=== PATIENT | female | born 1975 | race Asian ===

== ENCOUNTER 2016-11-21 07:05 | Day surgery (SDC) | payer OTHER ==
[~2016-11-21] VITALS: Ht 154.9 cm; Wt 67.1 kg
[~2016-11-21 07:05] MED LIST: PROT40T PO; RNT300T PO; Sodium Chloride LOK Flush 10 mL Syringe IV PRN; fentaNYL-PF 50 mCg/mL 2 mL Inj IVPUSH PRN
[2016-11-21 07:31] VITALS: BP 120/68; PULSE 66; RESP 14; O2SAT 98
[2016-11-21] MEDS ORDERED: GUAI120L57 PO (07:36)
[2016-11-21] MEDS ORDERED: fentaNYL-PF 50 mCg/mL 2 mL Inj IVPUSH PRN (07:45)
[2016-11-21] MEDS ORDERED: Sodium Chloride LOK Flush 10 mL Syringe IV PRN (07:45)
[2016-11-21] MEDS ORDERED: 0.9% Sodium Chloride 1,000 ML IV ONE (07:47)
[2016-11-21] MEDS ORDERED: 0.9% Sodium Chloride 1,000 ML ONE (07:50)
[2016-11-21 08:20] VITALS: BP 111/71; PULSE 64; RESP 16; O2SAT 97
[2016-11-21 08:28] VITALS: BP 110/69; PULSE 67; RESP 16; O2SAT 97
[2016-11-21 08:34] VITALS: BP 110/61; PULSE 56; RESP 16; O2SAT 97
--- NOTE | 2016-11-21 08:43 | ENDO ---
[address] [address] ENDOSCOPY PROCEDURE PATIENT: HELADIO COREY : 1975 MR#: [id number] ADMIT: 11/21/2016 JOB ID: [id number] DATE OF SERVICE: 11/21/2016 PREOPERATIVE DIAGNOSES: 1. History of Vallecillo esophagitis. 2. Dysphagia. POSTOPERATIVE DIAGNOSES: 1. History of Vallecillo esophagitis. 2. Dysphagia. PROCEDURE: Upper endoscopy with biopsy. SURGEON: Fernando Teran MD. INDICATIONS: The patient is a 41-year-old female, who has a history of Vallecillo esophagitis. Three years ago I performed a laparoscopic Mike fundoplication. She is currently complaining of dysphagia. She is also due for surveillance for her Vallecillo esophagitis. FINDINGS: The esophageal hiatus and the GE junction were at 38-39 cm from the incisors. There was no evidence of a hiatal hernia. There was no gross evidence of Vallecillo esophagitis. There was no stricture. There were no webs or bands, and the scope passed uneventfully into the stomach. Retrograde views of the cardia revealed a Hill grade I flap valve. The fundus, body and antrum of the stomach were endoscopically normal, as were the pylorus and duodenum into the second portion of the duodenum. Biopsies of the antrum and of the GE junction were obtained. DESCRIPTION OF PROCEDURE: The procedure and sedation plan was discussed with the patient and nursing staff. A procedural time-out was held. She gargled viscous Xylocaine. She received 4 mg of Versed and 100 mcg of fentanyl. The Olympus video endoscope was passed transorally into the second portion of the duodenum and withdrawn obtaining retroflexed views of the cardia and then biopsies with results as stated above. Esophageal manometry has also been ordered. IMPRESSION: 1. There was no explanation for dysphagia. 2. There were no obvious changes of Vallecillo esophagitis but pathology is pending. PLAN: She will obtain an esophageal manometry and return to see me in the office.
--- NOTE | 2016-11-22 15:26 | PATH ---
SURGICAL PATHOLOGY Attending Physician:Riana Conley CASE STATUS: Signed Out PATIENT NAME: HELADIO COREY PID: [id number] : 1975 DATE COLLECTED:11/21/2016 16:45 SPECIMEN: 1: Stomach, Antrum, Biopsy 2: Esophagus, Biopsy CLINICAL HISTORY: A: ANTRUM BIOPSY B: GE J BIOPSY FINAL DIAGNOSIS: 1.ANTRUM BIOPSY: GASTRIC BODY AND ANTRAL MUCOSA WITH NO DIAGNOSTIC ALTERATIONS. Negative for Helicobacter organisms. Negative for intestinal metaplasia. Negative for dysplasia and malignancy. 2.GEJ BIOPSY: SQUAMOCOLUMNAR MUCOSA WITH MILD INFLAMMATORY CHANGES CONSISTENT WITH REFLUX. Negative for intestinal metaplasia. Negative for dysplasia and malignancy. ICD10 code K21.0 GROSS DESCRIPTION: The specimen is received in two formalin filled containers labeled with the patient's name. 1). The specimen is sublabeled "antrum" and consists of a 0.3 x 0.3 x 0.2 CM portion of tissue which is entirely submitted in cassette 1A. 2). The specimen is sublabeled "GEJ" and consists of 3 portions of tissue which aggregate to 0.3 x 0.3 x 0.3 CM. The specimen is entirely submitted in cassette 2A. 11/21/2016 DAC MICRO DESCRIPTION: See diagnosis. ICD-9 CODES: CPT CODES: 1: 50458 2: 85109 Electronically Signed Out Jennie Moody MD [facility] [address], [place] [address] Technical component performed at [facility], [facility] [address], [address]
== END 2016-11-21 23:59 | disposition home or self-care (01) ==
LOC: END 07:05
PROVIDERS: ATTEND Surgery
DX: R13.10 Dysphagia, unspecified (principal); K21.9 Gastro-esophageal reflux disease without esophagitis; Z87.19 Personal history of other diseases of the digestive system
CPT/HCPCS: 43239; 88305; G0500; J2250; J7030

== ENCOUNTER 2016-12-03 10:40 | Day surgery (SDC) | payer OTHER ==
[~2016-12-03 10:40] MED LIST changes: +0.9% Sodium Chloride 1,000 ML IV SCH; +GUAI120L57 PO; +Lidocaine Topical 2% 30 mL Jelly ONE; -PROT40T PO; -RNT300T PO
== END 2016-12-03 23:59 | disposition home or self-care (01) ==
LOC: END 10:40
PROVIDERS: ATTEND Surgery
DX: K22.70 Barrett's esophagus without dysplasia (principal)